=== PATIENT | male | born 1980 | race Caucasian/White ===

== ENCOUNTER 2022-08-17 12:04 | Outpatient (NON) | payer OTHER, SELFPAY ==
[2022-08-18 13:00] LABS: Liquefaction Semen Complete in 30 min. (<30 minutes); Semen Color Opaque (Grey-opaque); Semen Immotility 30 %; Semen Morphology Result to Follow; Semen Non-Progressive Motility 10 %; Semen Progressive Motility 60 % (>32); Semen Total Motility 70 (>40% (PM+NP)); Semen Viscosity Not Increased (Not Increa.); Sperm Count 141.8 Mil/mL (60-150 million/mL)
[2022-08-24 21:34] LABS: Fructose, Semen 202 mg/dL (150-600)
== END 2022-08-17 12:05 | disposition home or self-care (01) ==
LOC: CHSLAB 08-18 12:08
PROVIDERS: Visit Provider Obstetrics & Gynecology
DX: Z30.09 Encounter for other general counseling and advice on contraception (principal)
CPT/HCPCS: 82757; 88160; 89320

== ENCOUNTER 2023-07-07 05:55 | Emergency (ER) | payer BC, SELFPAY ==
[2023-07-07 05:58] VITALS: BP 156/101; PULSE 61; RESP 14; TEMP 36.1; O2SAT 100
--- NOTE | 2023-07-07 07:19 | ED.WOUNDLAC ---
HPI - Wound/Laceration General Chief Complaint: Wound/Laceration Stated Complaint: upper lip (inside portion) lac Time Seen by Provider: 07/07/23 07:02 Source: patient and RN notes reviewed Mode of arrival: ambulatory Limitations: no limitations History of Present Illness HPI narrative: This is a 42 year old male who presents for evaluation right lip laceration. Patient states this morning his son accidentally hit him in lip walking jumping in bed. Patient reports right upper lip feels swollen but he has minimal pain. He reports his last tetanus was last year. He denies any medical problems Related Data Allergies Allergy/AdvReac Type Severity Reaction Status Date / Time No Known Allergies Allergy Verified 07/07/23 06:13 Review of Systems Review of Systems: All systems reviewed & are unremarkable except as noted in HPI and below PMFSH Past Medical History Medical History (Updated 07/07/23 @ 07:22 by Anupama Patel MD) Patient denies medical problems Social History Social History (Updated 07/07/23 @ 07:20 by Anupama Patel MD) Smoking status: Never smoker Exam Const: General: no acute distress and alert Nutritional Appearance: well nourished Orientation/consciousness: patient oriented x3 Limitations: no limitations HENMT: Head: normal to inspection Ears: external ears normal Teeth and gingiva: dentition normal Other: right upper lip swelling present, with 1 cm laceration on inner mucosa of upper lip Eyes: EOM: EOMs intact bilaterally Chest: Chest palpation & inspection: normal inspection of the chest Resp: Effort & Inspection: normal respiratory effort Psych: Mental Status: mental status grossly normal Affect: normal affect Attitude: cooperative Course Reevaluation(s) Date: 07/07/23 Time: 07:21 Vital Signs Vital signs: Vital Signs Temperature 97 F L 07/07/23 05:58 Pulse Rate 61 07/07/23 05:58 Respiratory Rate 14 07/07/23 05:58 Blood Pressure 156/101 H 07/07/23 05:58 Pulse Oximetry 100 07/07/23 05:58 Oxygen Delivery Room Air 07/07/23 05:58 Temperature 97 F L 07/07/23 05:58 Pulse Rate 61 07/07/23 05:58 Respiratory Rate 14 07/07/23 05:58 Blood Pressure 156/101 H 07/07/23 05:58 Pulse Oximetry 100 07/07/23 05:58 Oxygen Delivery Room Air 07/07/23 05:58 Discharge Plan Discharge Clinical Impression: Lip laceration Qualifiers: Encounter type: initial encounter Qualified Code(s): S01.511A - Laceration without foreign body of lip, initial encounter Patient Disposition: Home, Self-Care Condition: Stable Instructions: Mouth Care (ED), Acute Wounds (ED) Additional Instructions: Apply ice to your lip. Take ibuprofen for pain. Use mouth wash to prevent infection while your mouth heals. Prescriptions: New chlorhexidine gluconate [Periogard] 0.12 % mouthwash 15 ml mucous membrane BID Qty: [id number] Follow-up/Referrals: PHYSICIAN NOT ON STAFF,NONSTAFF [Primary Care Provider] -
== END 2023-07-07 07:36 | disposition home or self-care (01) ==
LOC: ANHED 07:29
PROVIDERS: Emergency Provider General Practice
DX: S01.511A Laceration without foreign body of lip, initial encounter (principal); W51.XXXA Accidental striking against or bumped into by another person, initial encounter
CPT/HCPCS: 99283